=== PATIENT | female | born 1975 | race Caucasian/White ===

== ENCOUNTER 2016-06-01 13:20 | Emergency (ER) ==
[2016-06-01 13:38] LABS: URINE SOURCE CLEAN CATCH
[2016-06-01 13:43] LABS: BILIRUBIN URINE NEGATIVE (NEGATIVE); BLOOD URINE 3+ (NEGATIVE); CLARITY CLEAR (CLEAR); COLOR YELLOW; GLUCOSE URINE NEGATIVE (NEGATIVE); LEUKOCYTES URINE TRACE (NEGATIVE); NITRITE URINE POSITIVE (NEGATIVE); PROTEIN URINE 1+(30 mg/dL) mg/dL (NEGATIVE); UROBILINOGEN URINE NORMAL
[2016-06-01] MEDS ORDERED: FLOMAX PO ONE (13:47)
[2016-06-01] MEDS ORDERED: MORPHINE IV ONE (13:48)
[2016-06-01] MEDS ORDERED: ZOFRAN IV ONE (13:49)
[2016-06-01] MEDS ORDERED: NS 1,000 ML IV ONE (13:49)
[2016-06-01 13:53] LABS: URINE CULTURE PL NEEDED? YES; URINE EPITHELIAL CELLS >10 /HPF (<10); URINE WBC <10 /HPF (<10)
[2016-06-01 14:04] LABS: MANUAL DIFF NEEDED? NO
[2016-06-01 14:06] LABS: BASO% 0.3 % (0.0-0.8); EOS% 3.2 % (0.0-10.0); HEMATOCRIT 39.6 % (37.0-47.0); HEMOGLOBIN 12.9 g/dL (12.0-16.0); IMM GRAN# 0.04 X1000 (0.0-0.04); IMM GRAN% 0.3 % (0.0-0.5); LYMPH# 1.88 X1000 (1.2-3.4); LYMPH% 15.1 % (20.5-51.1); MCH 25.3 PG (27-31); MCHC 32.6 g/dL (33-37); MCV 77.8 FL (81-99); MONO# 1.07 X1000 (0.11-0.59); MONO% 8.6 % (1.7-9.3); MPV 9.1 FL (7.4-10.4); NEUT% 72.5 % (42.2-75.2); PLT 458 X1000 (130-400); RBC 5.09 XMIL (4.2-5.4)
--- NOTE | 2016-06-01 14:11 | PROVIDER DOCUMENTATION ---
HPI-Female /OB/Breast - General Source: reports: patient - History of Present Illness-Female /OB Does patient report she is ?: No Location of complaint: reports: suprapubic Radiation: reports: none ED Female Body: 1 - PAIN Quality of Pain: reports: aching Severity in ED: reports: mild Onset/Duration: reports: 1 week ago Timing: reports: still present Context/Activities at Onset: reports: none Vaginal Symptoms: reports: no symptoms Vaginal Bleeding Amount: None Urinary Symptoms: reports: no symptoms Related Symptoms: reports: no symptoms Leakage of Fluid: none Associated Symptoms: reports: denies symptoms Similar Symptoms Previously?: No Recently seen or treated by another doctor?: No <Donovan Trotter - Last Filed: 06/01/16 16:02> <Joseluis Thakkar - Last Filed: 06/01/16 16:07> - General Chief Complaint: Flank Pain Stated Complaint: ABD PAIN Time Seen by Provider: 06/01/16 13:32 Allergies/Adverse Reactions: Patient Allergies Allergy/AdvReac Type Severity Reaction Status Date / Time No Known Allergies Allergy Verified 06/01/16 13:29 Home Medications: Home Medication List Medication Instructions Recorded Confirmed Last Taken Type Hydrocodone/Acetaminophen [[place] 1 each PO Q4-6H PRN PRN #20 tablet 06/01/16 Unknown Rx 10-325 Tablet] Levothyroxine [Synthroid] 125 mcg PO 06/01/16 Unknown History Tamsulosin [Flomax] 0.4 mg PO DAILY #7 capsule 06/01/16 Unknown Rx Venlafaxine E.r. [Effexor Xr] 75 mg PO DAILY 06/01/16 06/01/16 Unknown History Review of Systems - Adult - REVIEW OF SYSTEMS - ADULT Constitutional: denies: chills, fever, night sweats Cardiovascular: denies: chest pain, irregular heart rate, palpitations Respiratory: denies: cough, shortness of breath, wheezing Gastrointestinal: denies: abdominal pain, diarrhea, nausea, vomiting Genitourinary: reports: flank pain. denies: dysuria, hematuria Musculoskeletal: denies: back pain, joint swelling, neck pain Integumentary: denies: hives, itching, rash Psychiatric: denies: anxiety, depression, emotional problems, suicidal thoughts All Other Systems: Reviewed and Negative <Donovan Trotter Filed: 06/01/16 16:02> Past History - Adult - PAST MEDICAL HISTORY-ADULT Review of Records: reports: Old Records Reviewed, Nursing Assessment Review, Medications Reviewed Major Childhood Illnesses: reports: denies history Genitourinary: reports: kidney disease Musculoskeletal: reports: fibromyalgia Endocrine/Immune: reports: thyroid disorder - PRIOR SURGERIES/PROCEDURES Surgical/Procedure History: reports: tonsillectomy - PRIOR HOSPITALIZATIONS Prior Hospitalizations: reports: none - IMMUNIZATION STATUS Childhood Immunizations: See Nurse Assessment Flu Vaccine: See Nurse Assessment - FAMILY HISTORY Family History: kidney stones - SOCIAL HISTORY Smoking: denies Substance Use: none/never Alcohol Use Frequency: occasionally Number of drinks per typical drinking period:: 1 drink Living Situation: family <Donovan Trotter Filed: 06/01/16 16:02> Physical Exam-General - PHYSICAL EXAM-ADULT Initial Vital Signs Reviewed: Yes - CONSTITUTIONAL General Appearance: appears well, alert, no apparent distress - RESPIRATORY Respiratory: chest non-tender, lungs clear, normal breath sounds, no pleuratic chest pain, no respiratory distress, no accessory muscle use - CARDIOVASCULAR Cardiovascular: normal peripheral pulses, regular rate, rhythm, no edema, no gallop, no JVD - GASTROINTESTINAL (ABDOMEN) Abdominal Exam: normal bowel sounds, non tender, soft, no organomegaly, no pulsatile mass - MUSCULOSKELETAL Back Exam: normal inspection, no CVA tenderness, no vertebral tenderness Extremity: normal range of motion, normal inspection - SKIN Integumentary: normal color, normal turgor, warm/dry - PSYCHIATRIC Psych/Mental Status: normal mood/affect, normal thought content, normal thought process, oriented x 3 <SergoDonovan Filed: 06/01/16 16:02> Progress - CT/MRI 1 CT Study: Renal Stone CT Results: 5.8CM OBSRTUCTING STONE IN THE DISTAL RIGHT URETER . - CONSULTS/PCP/HOSPITALIST Notification #1 *Consult/PCP/Hospitalist*: Time Discussed: 16:05 Reason/Comments: RENAL STONE Consult Disposition: F/U in office (IN THE MORNING.) <Donovan Trotter - Last Filed: 06/01/16 16:02> <Joseluis Thakkar - Last Filed: 06/01/16 16:07> - PLAN OF CARE/RESULTS Progress/Plan/Lab Results: Laboratory Results - last 24 hr 06/01/16 06/01/16 06/01/16 14:00 14:00 Unknown WBC 12.49 H RBC 5.09 Hgb 12.9 Hct 39.6 MCV 77.8 L MCH 25.3 L MCHC 32.6 L RDW Std Deviation 15.6 H Plt Count 458 H MPV 9.1 Immature Gran % (Auto) 0.3 Neut % (Auto) 72.5 Lymph % (Auto) 15.1 L [place] % (Auto) 8.6 Eos % (Auto) 3.2 Baso % (Auto) 0.3 Immature Gran # (Auto) 0.04 Neut # (Auto) 9.06 H Lymph # (Auto) 1.88 [place] # (Auto) 1.07 H Eos # (Auto) 0.40 Baso # (Auto) 0.04 Sodium 135 L Potassium 3.8 Chloride 101 Carbon Dioxide 21 L Anion Gap 14 BUN 9 Creatinine 0.5 Estimated GFR/1.73 m2 > 60 BUN/Creatinine Ratio 18 Glucose 120 H Calculated Osmolality 270 Calcium 9.3 Total Bilirubin 0.30 AST 26 ALT 37 H Alkaline Phosphatase 73 Total Protein 7.6 Albumin 4.7 Globulin 3.0 Albumin/Globulin Ratio 2.0 Urine Source CLEAN CATCH Urine Color YELLOW Urine Clarity CLEAR Urine pH 5.0 Ur Specific [place] 1.020 Urine Protein 1+(30 mg/dL) A Urine Ketones NEGATIVE Urine Blood 3+ A Urine Nitrite POSITIVE A Urine Bilirubin NEGATIVE Urine Urobilinogen NORMAL Urine Microscopic RBC 10-20 A Urine WBC TRACE A Urine Microscopic WBC <10 Ur Epithelial Cells >10 A Urine Bacteria 1+ Urine Glucose NEGATIVE Bedside Urine ED: Urine Bedside Start: 06/01/16 13:32 Freq: ORDERED Status: Active Activity Type Activity Date Activity User Co-Sign Detail Recorded Client Recorded Date Recorded By Document 06/01/16 13:36 [id number] 06/01/16 13:37 [id number] 06/01/16 13:36 Point of Care [Bedside Point of Care] -Lot # [id number] - Results Negative -Control Line Visible? Yes (Donovan Trotter) Departure <Donovan Trotter - Last Filed: 06/01/16 16:02> - Departure Time of Disposition Order: 16:05 Certified Medical Emergency: Emergent <Joseluis Thakkar - Last Filed: 06/01/16 16:07> - Departure DIAGNOSIS: Kidney calculus Disposition: HOME 01 Condition: Stable Additional Instructions: make appointment to see Dr Martin for tomorrow ED Follow Up Instructions: You have been treated by a care provider in the Emergency Department. These instructions are being provided to you so you can have an understanding of how to care for yourself upon discharge. Upon discharge from the Emergency Department, you are responsible for making arrangements for follow-up care by a physician of your choice. Take all prescribed medications as directed. Return to the Emergency Department immediately for any new or worsening symptoms. You may call the Physician Referral phone number at [phone] to obtain a list of Physicians who are taking new patients. Prescriptions: Tamsulosin [Flomax] 0.4 mg PO DAILY #7 capsule Hydrocodone/Acetaminophen [[place] 10-325 Tablet] 1 each PO Q4-6H PRN PRN #20 tablet PRN Reason: Pain Physician Attestation
[2016-06-01 14:23] LABS: AGAP 14; ALBUMIN 4.7 g/dL (3.5-5.0); ALKALINE PHOSPHATASE 73 U/L (32-104); BUN 9 mg/dL (8-22); CALCIUM 9.3 mg/dL (8.8-10.2); CHLORIDE 101 mmol/L (98-107); COSMO 270; GOT 26 U/L (10-30); GPT 37 U/L (10-36); POTASSIUM 3.8 mmol/L (3.5-5.1); SODIUM 135 mmol/L (136-145); TCO2 21 mmol/L (25-35); TOTAL PROTEIN 7.6 g/dL (6.3-8.3)
--- NOTE | 2016-06-01 14:49 | Diag Imaging Result Document ---
PROCEDURE NAME: RENAL STONE SEARCH - 06/01/2016 CT ABDOMEN AND PELVIS WITHOUT CONTRAST/RENAL STONE PROTOCOL: COMPARISON: 03/08/2011. FINDINGS: There is diffuse hepatic steatosis. There is bilateral nephrolithiasis and there is a 5.8 mm obstructing stone in the distal right ureter a couple of cm superior to the UVJ. The urinary bladder is unremarkable. There is no evidence of appendicitis. The gallbladder is unremarkable. There is mild right hydroureteronephrosis related to the obstructing stone. The remainder of the solid viscera of the abdomen and pelvis and the remainder of the GI tract is essentially unremarkable. IMPRESSION: 1. Bilateral nephrolithiasis with a 5.8 mm obstructing stone in the distal right ureter and associated mild right hydronephrosis. 2. Incidental hepatic steatosis.
[2016-06-01 16:09] VITALS: BP 125/72
== END 2016-06-01 16:38 | disposition home or self-care (01) ==
LOC: P.ED 13:20
DX: N13.2 Hydronephrosis with renal and ureteral calculous obstruction (principal); K76.0 Fatty (change of) liver, not elsewhere classified; R10.9 Unspecified abdominal pain; M79.7 Fibromyalgia; E07.9 Disorder of thyroid, unspecified; Z79.899 Other long term (current) drug therapy
CPT/HCPCS: 74176; 80053; 81001; 81025; 85025; 87088; 96361; 96374; 96375; J2270; J2405; J7030

== ENCOUNTER 2016-06-02 11:04 | Day surgery (SDC) ==
[2016-06-02] MEDS ORDERED: LR 1,000 ML ONE (11:54)
[2016-06-02] MEDS ORDERED: KEFZOL 2 GM/D5W 50 ML ONE (11:54)
[2016-06-02] MEDS ORDERED: PEPCID PO ONE (12:25)
[2016-06-02] MEDS ORDERED: REGLAN PO ONE (12:25)
[2016-06-02] MEDS ORDERED: DEMEROL ONE (14:04)
[2016-06-02] MEDS ORDERED: DEMEROL IV ONE (14:07)
[2016-06-02] MEDS ORDERED: FENTANYL ONE (16:27)
[2016-06-02] MEDS ORDERED: DIPRIVAN 1% ONE (16:28)
[2016-06-02] MEDS ORDERED: NORCO-10 ONE (16:50)
--- NOTE | 2016-06-02 16:51 | OPERATIVE NOTE ---
PROCEDURE DATE: 06/02/2016 SURGEON: Anam Martin MD POSTOPERATIVE DIAGNOSIS: Right distal ureteral stone with moderate hydronephrosis and right flank pain. POSTOPERATIVE DIAGNOSIS: Right distal ureteral stone with moderate hydronephrosis and right flank pain. PROCEDURE PERFORMED: 1. Cystoscopic exam, right ureteroscopy, laser lithotripsy and stone basket extraction of fragments. 2. Placement of right double-J stent. ANESTHESIA: General via laryngeal mask. FINDINGS: Cystoscopic exam: Urethra-greater than 21 Irish, without stricture. Bladder-normal ureteral orifices bilaterally. No papillary lesions or trabeculations. Right ureteroscopy reveals an approximate 7-8 mm stone in the right distal ureter. exam-normal external female. Normal vaginal mucosa. No adnexal masses. Palpably normal bladder. Palpably normal cervix and uterus. INDICATION FOR PROCEDURE: This 40-year-old female with history of renal lithiasis developed severe right flank pain with nausea and vomiting. A CT stone search revealed a right distal ureteral stone with moderate hydronephrosis. DESCRIPTION OF PROCEDURE: After informed consent was obtained from the patient and her receiving IV antibiotics, she was taken to the main OR cystoscopy room and placed in the supine position. General anesthesia via laryngeal mask was achieved. She was then placed in low lithotomy position and prepped and draped in the usual sterile fashion for cystoscopic exam. A 21-Irish cystoscope was passed through the patient's urethra and into the bladder with findings noted above. A 0.035 zip wire was passed through the cystoscope, engaged right ureteral orifice and after manipulation was able to be pushed up past the stone and coiled into the kidney. The cystoscope was removed leaving the zip wire in place. A 6.9-Irish long ACMI ureteroscope was passed through the patient's urethra and into the bladder. A 0.035 Sensor wire was passed through the ureteroscope and into the ureter. The ureteroscope was advanced over the Sensor wire and up to the stone. The Sensor wire was removed. A 365 micron laser fiber was placed. The laser was set at 8 corado and 8 hertz and the stone was fragmented. A total of 365 joules was used to break up the stone. A 4- wire Nitinol basket was placed and multiple passes were made to remove stone fragments. Several of these were sent to Pathology for analysis. The ureteroscope was advanced to the proximal ureter. No further stones or fragments were seen. The ureteroscope was removed. A 6-Irish, 24 cm double-J stent was passed over the zip wire and up into the kidney. The renal end was verified by fluoroscopic exam, bladder end directly visualized. Bladder was drained. Cystoscope was removed. Stent removal string was securely taped to the lower abdomen. exam was performed. She tolerated the procedure well. Estimated blood loss was zero. She was taken to recovery room in good condition.
[2016-06-02] MEDS ORDERED: XYLOCAINE-MPF 2% ONE (17:10)
[2016-06-02] MEDS ORDERED: DECADRON ONE (17:10)
[2016-06-02] MEDS ORDERED: ZOFRAN ONE (17:10)
[2016-06-02 18:17] VITALS: BP 101/75
--- NOTE | 2016-06-03 09:57 | Diag Imaging Result Document ---
PROCEDURE NAME: FLUROSCOPY CYSTO - 06/02/2016 8 FLUOROSCOPIC FILMS TAKEN DURING A PROCEDURE PERFORMED BY DR. WEINBERG: FINDINGS: Fluoroscopy time is 13 seconds with a dose of 3.59 mGy. Films show the placement of a wire in the right ureter. A catheter is placed over this wire and the wire is removed. IMPRESSION: Right ureteral stent placed.
== END 2016-06-02 17:50 | disposition home or self-care (01) ==
LOC: OR 11:04
PROVIDERS: ATTEND Urology
DX: N13.2 Hydronephrosis with renal and ureteral calculous obstruction (principal); Z87.442 Personal history of urinary calculi; R10.9 Unspecified abdominal pain; I10 Essential (primary) hypertension; E03.9 Hypothyroidism, unspecified; E66.9 Obesity, unspecified; Z68.32 Body mass index [BMI] 32.0-32.9, adult; Z79.899 Other long term (current) drug therapy
CPT/HCPCS: 76000; 82360; 88300; C2617; J0690; J1100; J2175; J2405; J3010; J7120

== ENCOUNTER 2016-06-08 18:43 | Emergency (ER) ==
[2016-06-08 19:04] LABS: URINE CULTURE PL NEEDED? NO; URINE SOURCE CLEAN CATCH
--- NOTE | 2016-06-08 19:18 | PROVIDER DOCUMENTATION ---
HPI-Female /OB/Breast - General Chief Complaint: Abnormal Lab[s] Stated Complaint: HIGH WHITE BLOOD COUNT Time Seen by Provider: 06/08/16 19:07 Source: reports: patient Allergies/Adverse Reactions: Patient Allergies Allergy/AdvReac Type Severity Reaction Status Date / Time No Known Allergies Allergy Verified 06/01/16 13:29 Home Medications: Home Medication List Medication Instructions Recorded Confirmed Last Taken Type Levothyroxine [Synthroid] 125 mcg PO DAILY 06/01/16 06/02/16 06/01/16 History Venlafaxine E.r. [Effexor Xr] 75 mg PO BID 06/01/16 06/02/16 06/01/16 History BENAZEpril [Lotensin] 20 mg PO DAILY 06/02/16 06/02/16 06/01/16 History Gemfibrozil [Lopid] 600 mg PO BID 06/02/16 06/02/16 06/01/16 History Hydrocodone/Acetaminophen [[place] 1 each PO Q4H PRN PRN #15 tablet 06/02/16 Unknown Rx 10-325 Tablet] Oxybutynin [Ditropan] 1 - 2 mg PO TID PRN PRN #30 tablet 06/02/16 Unknown Rx SIMVAstatin [Zocor] 10 mg PO DAILY 06/02/16 06/02/16 06/01/16 History Tizanidine HCl [Zanaflex] 2 mg PO QHS 06/02/16 06/02/16 05/31/16 History Tramadol HCl [Ultram] 50 mg PO DIRECTED PRN PRN 06/02/16 06/02/16 06/01/16 History Acetaminophen with Codeine 1 each PO Q6H PRN PRN #14 tablet 06/08/16 Unknown Rx [Tylenol with Codeine #3 Tablet] Levofloxacin [Levaquin] 500 mg PO DAILY #7 tablet 06/08/16 Unknown Rx Promethazine [Phenergan] 25 mg PO Q6H PRN PRN #14 tablet 06/08/16 Unknown Rx Sulfamethoxazole/Tmp D.s. [Septra 1 each PO BID #14 tablet 06/08/16 Unknown Rx Ds] - History of Present Illness-Female /OB Nature of Presenting Problem: 40 y/o WF states she had a 6mm stone removed in her right side 6 days ago with a stint and she got a fever 2 days ago 102.8 beginning yesterday with Nausea and vomiting. Pt got a call from her Dr and was sent to the ED for elevated WBC 20,000. Location of complaint: reports: generalized flank Radiation: reports: none Quality of Pain: reports: aching Severity in ED: reports: moderate Onset/Duration: reports: 3 days ago Timing: reports: still present Vaginal Symptoms: reports: no symptoms Vaginal Bleeding Amount: None Urinary Symptoms: denies: dysuria, frequency, polyuria Related Symptoms: reports: no symptoms Review of Systems - Adult - REVIEW OF SYSTEMS - ADULT Constitutional: reports: chills, fever Eyes: reports: no symptoms reported Ears, Nose, Mouth & Throat: reports: no symptoms reported Cardiovascular: denies: chest pain, edema, palpitations Respiratory: denies: cough, shortness of breath, wheezing Gastrointestinal: reports: abdominal pain, nausea, vomiting Genitourinary: denies: discharge, hematuria, urgency Musculoskeletal: reports: no symptoms reported Integumentary: reports: no symptoms reported Neurological: reports: no symptoms reported Psychiatric: reports: no symptoms reported Endocrine: reports: no symptoms reported Hematologic/Lymphatic: reports: no symptoms reported Allergic/Immunologic: reports: no symptoms reported All Other Systems: Reviewed and Negative Past History - Adult - PAST MEDICAL HISTORY-ADULT Review of Records: reports: Old Records Reviewed, Nursing Assessment Review, Medications Reviewed Major Childhood Illnesses: reports: denies history Genitourinary: reports: kidney disease, kidney stones Musculoskeletal: reports: fibromyalgia Endocrine/Immune: reports: thyroid disorder - PRIOR SURGERIES/PROCEDURES Surgical/Procedure History: reports: tonsillectomy - PRIOR HOSPITALIZATIONS Prior Hospitalizations: reports: none - IMMUNIZATION STATUS Childhood Immunizations: See Nurse Assessment Flu Vaccine: See Nurse Assessment - FAMILY HISTORY Family History: kidney stones - SOCIAL HISTORY Smoking: non-smoker Substance Use: none/never Living Situation: family Physical Exam-General - PHYSICAL EXAM-ADULT Initial Vital Signs Reviewed: Yes - CONSTITUTIONAL General Appearance: appears well, alert, no apparent distress - EYES Eyes: PERRL/EOMI, pink conjunctivae - HEAD, EARS, NOSE, MOUTH & THROAT HENMT: moist mucous membranes, normal ENT inspection, TMs normal, pharynx normal - NECK Neck: non-tender, full range of motion, supple, normal inspection - RESPIRATORY Respiratory: lungs clear, normal breath sounds, no pleuratic chest pain, no respiratory distress, no accessory muscle use - CARDIOVASCULAR Cardiovascular: normal peripheral pulses, regular rate, rhythm - GASTROINTESTINAL (ABDOMEN) Abdominal Exam: normal bowel sounds, non tender, soft - MUSCULOSKELETAL Back Exam: normal inspection, no CVA tenderness, no vertebral tenderness Extremity: normal range of motion, non-tender, normal gait, normal inspection - SKIN Integumentary: normal color, normal turgor, warm/dry - NEUROLOGIC Neurologic: grossly normal, no motor/sensory deficits - PSYCHIATRIC Psych/Mental Status: normal mood/affect, normal thought content, normal thought process, oriented x 3 Progress - PLAN OF CARE/RESULTS Progress/Plan/Lab Results: Orders Category Date Time Status US RENAL 2 (RETROPER) COMPLETE [US] Stat Exams 06/08/16 19:13 Taken BLOOD CULTURE [BLDCUL] Stat Lab 06/08/16 18:50 Ordered CBC WITH DIFF [HEME] Stat Lab 06/08/16 19:20 Completed COMPREHENSIVE METABOLIC PANEL [CHEM] Stat Lab 06/08/16 19:20 Completed LACTATE, PLASMA [CHEM] Stat Lab 06/08/16 19:[address] W/POSS RFLX CULT [URINALYSIS] Stat Lab 06/08/16 18:54 Completed Ondansetron [Zofran] Med 06/08/16 19:32 Discontinued 4 mg IV NOW ONE Vital Signs Temp Pulse Resp BP Pulse Ox 06/08/16 18:46 98.2 F 105 H 18 144/77 100 No Known Allergies Allergy (Verified 06/01/16 13:29) Levothyroxine [Synthroid] 125 mcg PO DAILY 06/01/16 Venlafaxine E.r. [Effexor Xr] 75 mg PO BID 06/01/16 BENAZEpril [Lotensin] 20 mg PO DAILY 06/02/16 Gemfibrozil [Lopid] 600 mg PO BID 06/02/16 Hydrocodone/Acetaminophen [[place] 10-325 Tablet] 1 each PO Q4H PRN PRN #15 tablet 06/02/16 Oxybutynin [Ditropan] 1 - 2 mg PO TID PRN PRN #30 tablet 06/02/16 SIMVAstatin [Zocor] 10 mg PO DAILY 06/02/16 Tizanidine HCl [Zanaflex] 2 mg PO QHS 06/02/16 Tramadol HCl [Ultram] 50 mg PO DIRECTED PRN PRN 06/02/16 Laboratory 06/08/16 06/08/16 06/08/16 19:20 19:20 19:20 WBC 14.66 H RBC 4.54 Hgb 11.4 L Hct 35.1 L MCV 77.3 L MCH 25.1 L MCHC 32.5 L RDW Std Deviation 15.3 H Plt Count 385 MPV 8.7 Immature Gran % (Auto) 0.2 Neut % (Auto) 81.8 H Lymph % (Auto) 10.2 L [place] % (Auto) 7.4 Eos % (Auto) 0.3 Baso % (Auto) 0.1 Immature Gran # (Auto) 0.03 Neut # (Auto) 11.99 H Lymph # (Auto) 1.50 [place] # (Auto) 1.08 H Eos # (Auto) 0.04 Baso # (Auto) 0.02 Sodium 130 L Potassium 2.8 L Chloride 94 L Carbon Dioxide 22 L Anion Gap 13 BUN 15 Creatinine 0.8 Estimated GFR/1.73 m2 > 60 BUN/Creatinine Ratio 19 Glucose 131 H Calculated Osmolality 263 Calcium 9.2 Total Bilirubin 0.40 AST 27 ALT 31 Alkaline Phosphatase 91 Total Protein 7.5 Albumin 4.2 Globulin 3.0 Albumin/Globulin Ratio 1.0 Plasma Lactate 1.1 Urine Source Urine Color Urine Clarity Urine pH Ur Specific [place] Urine Protein Urine Ketones Urine Blood Urine Nitrite Urine Bilirubin Urine Urobilinogen Urine Microscopic RBC Urine WBC Urine Microscopic WBC Ur Epithelial Cells Urine Glucose 06/08/16 18:54 WBC RBC Hgb Hct MCV MCH MCHC RDW Std Deviation Plt Count MPV Immature Gran % (Auto) Neut % (Auto) Lymph % (Auto) [place] % (Auto) Eos % (Auto) Baso % (Auto) Immature Gran # (Auto) Neut # (Auto) Lymph # (Auto) [place] # (Auto) Eos # (Auto) Baso # (Auto) Sodium Potassium Chloride Carbon Dioxide Anion Gap BUN Creatinine Estimated GFR/1.73 m2 BUN/Creatinine Ratio Glucose Calculated Osmolality Calcium Total Bilirubin AST ALT Alkaline Phosphatase Total Protein Albumin Globulin Albumin/Globulin Ratio Plasma Lactate Urine Source CLEAN CATCH Urine Color YELLOW Urine Clarity CLEAR Urine pH 6.0 Ur Specific [place] 1.015 Urine Protein 1+(30 mg/dL) A Urine Ketones 1+(Small) A Urine Blood 4+ Urine Nitrite NEGATIVE Urine Bilirubin NEGATIVE Urine Urobilinogen NORMAL Urine Microscopic RBC 10-20 A Urine WBC 1+ A Urine Microscopic WBC <10 Ur Epithelial Cells <[address] Eddy spoke with family and Patient with option in care and the mom states she is a nurse and can watch her at home. - ULTRASOUND (By Radiology) 1 US Study: Renal Impression: Normal (non obstructing stone on the right kidney, otherwise normal) - CONSULTS/PCP/HOSPITALIST Notification #1 *Consult/PCP/Hospitalist*: Dr Veras (Hospitalist) Time Discussed: 22:44 Reason/Comments: Admission: He said call Dr Martin Consult Disposition: Admit #2 Consult: Dr Martin (urology) Time Discussed: 22:51 Reason/Comments: review plan of care with admission Consult Disposition: F/U in office Departure - Departure Time of Disposition Order: 00:15 DIAGNOSIS: Kidney calculus Disposition: HOME 01 Certified Medical Emergency: Emergent Condition: Good Additional Instructions: ED Follow Up Instructions: You have been treated by a care provider in the Emergency Department. These instructions are being provided to you so you can have an understanding of how to care for yourself upon discharge. Upon discharge from the Emergency Department, you are responsible for making arrangements for follow-up care by a physician of your choice. Take all prescribed medications as directed. Return to the Emergency Department immediately for any new or worsening symptoms. You may call the Physician Referral phone number at [phone] to obtain a list of Physicians who are taking new patients. Prescriptions: Levofloxacin [Levaquin] 500 mg PO DAILY #7 tablet Promethazine [Phenergan] 25 mg PO Q6H PRN PRN #14 tablet PRN Reason: Nausea Sulfamethoxazole/Tmp D.s. [Septra Ds] 1 each PO BID #14 tablet Acetaminophen with Codeine [Tylenol with Codeine #3 Tablet] 1 each PO Q6H PRN PRN #14 tablet PRN Reason: Pain Referrals: Carlos Levi MD [STAFF PHYSICIAN] - Forms: Return to School/Parent Work Instructions: Urinary Tract Infection, [id number], Promethazine tablets, Levofloxacin tablets, Sulfamethoxazole; Trimethoprim, SMX-TMP tablets, Acetaminophen; Codeine tablets Attestation - Scribe Verification/Attestation Scribe:: Lloyd Hi Acting as Scribe for:: Lloyd Eddy Scribe documention review:: This chart was documented by a scribe and accurately reflects the service the provider performed and the decisions made by the provider.
[2016-06-08 19:23] LABS: BILIRUBIN URINE NEGATIVE (NEGATIVE); BLOOD URINE 4+ (NEGATIVE); CLARITY CLEAR (CLEAR); COLOR YELLOW; GLUCOSE URINE NEGATIVE (NEGATIVE); LEUKOCYTES URINE 1+ (NEGATIVE); NITRITE URINE NEGATIVE (NEGATIVE); PROTEIN URINE 1+(30 mg/dL) mg/dL (NEGATIVE); SP GRAVITY URINE 1.015; UROBILINOGEN URINE NORMAL
[2016-06-08 19:27] LABS: MANUAL DIFF NEEDED? NO
[2016-06-08 19:31] LABS: BASO% 0.1 % (0.0-0.8); EOS# 0.04 X1000 (0.0-0.7); EOS% 0.3 % (0.0-10.0); HEMATOCRIT 35.1 % (37.0-47.0); HEMOGLOBIN 11.4 g/dL (12.0-16.0); IMM GRAN# 0.03 X1000 (0.0-0.04); IMM GRAN% 0.2 % (0.0-0.5); LYMPH% 10.2 % (20.5-51.1); MCH 25.1 PG (27-31); MCHC 32.5 g/dL (33-37); MCV 77.3 FL (81-99); MONO# 1.08 X1000 (0.11-0.59); MONO% 7.4 % (1.7-9.3); MPV 8.7 FL (7.4-10.4); NEUT% 81.8 % (42.2-75.2); PLT 385 X1000 (130-400); RBC 4.54 XMIL (4.2-5.4)
[2016-06-08] MEDS ORDERED: ZOFRAN IV ONE (19:32)
[2016-06-08 19:45] LABS: URINE EPITHELIAL CELLS <10 /HPF (<10); URINE WBC <10 /HPF (<10)
[2016-06-08 19:54] LABS: AGAP 13; ALBUMIN 4.2 g/dL (3.5-5.0); ALKALINE PHOSPHATASE 91 U/L (32-104); BUN 15 mg/dL (8-22); CALCIUM 9.2 mg/dL (8.8-10.2); CHLORIDE 94 mmol/L (98-107); COSMO 263; GOT 27 U/L (10-30); GPT 31 U/L (10-36); POTASSIUM 2.8 mmol/L (3.5-5.1); SODIUM 130 mmol/L (136-145); TCO2 22 mmol/L (25-35); TOTAL PROTEIN 7.5 g/dL (6.3-8.3)
[2016-06-08] MEDS ORDERED: NORCO-5 PO ONE (20:44)
[2016-06-08] MEDS ORDERED: KLOR-CON PO ONE (21:14)
[2016-06-08 23:20] VITALS: BP 113/71
--- NOTE | 2016-06-08 23:40 | Diag Imaging Result Document ---
PROCEDURE NAME: US RENAL 2 (RETROPER) COMPLETE - 06/08/2016 RENAL ULTRASOUND: FINDINGS: The right kidney measures 12.5 x 5.0 x 5.0 cm. Normal renal echogenicity and cortical thickness. No hydronephrosis. I believe there is a tiny nonobstructing stone. No renal mass. The left kidney measures 12.3 x 4.9 x 7.0 cm. Normal renal echogenicity and cortical thickness. I believe there is a small renal stone. No hydronephrosis. No renal mass. The urinary bladder is only mildly distended. IMPRESSION: Small bilateral renal stones, but no hydronephrosis. A preliminary report was given at 8:02 p.m.
== END 2016-06-08 23:19 | disposition home or self-care (01) ==
LOC: P.ED 18:43
DX: N20.0 Calculus of kidney (principal); R10.84 Generalized abdominal pain; R50.9 Fever, unspecified; R11.2 Nausea with vomiting, unspecified; Z87.442 Personal history of urinary calculi; M79.7 Fibromyalgia; E07.9 Disorder of thyroid, unspecified; Z79.899 Other long term (current) drug therapy
CPT/HCPCS: 76770; 80053; 81001; 83605; 85025; 87040; 96374; J2405